=== PATIENT | female | born 1980 | race Caucasian/White ===

== ENCOUNTER 2020-12-23 13:53 | Outpatient (REF) | payer OTHER, SELFPAY ==
[2020-12-23 18:38] LABS: Leukocytes Stool Qualitative NEGATIVE (NEGATIVE)
[2020-12-24 04:19] LABS: CDiff Gene PCR NEGATIVE (Negative)
== END 2020-12-23 13:54 | disposition home or self-care (01) ==
LOC: HO.HMGCLNP 13:53
PROVIDERS: Visit Provider Nurse Practitioner Family
DX: R19.7 Diarrhea, unspecified (principal)
CPT/HCPCS: 87045; 87046; 87177; 87209; 87329; 87338; 87493; 89055

== ENCOUNTER 2021-01-29 14:46 | Outpatient (REF) | payer OTHER, SELFPAY ==
--- NOTE | ~2021-01-29 | XR_ITS ---
EXAMINATION: XR LUMBOSACRAL SPINE CLINICAL INFORMATION: Radiculopathy, lumbar region COMPARISON: None TECHNIQUE: AP and lateral views of the lumbar spine with an additional coned down lateral spot view of the lumbosacral junction. FINDINGS: 5 non-rib bearing lumbar type vertebral bodies are seen. The vertebral bodies and posterior elements are normal. The disc spaces are preserved and the vertebral alignment is normal. The paraspinal soft tissues are normal. Right upper quadrant cholecystectomy clips. XR/XR lumbar spine 2-3V IMPRESSION: Normal appearance of the lumbar spine.
[2021-01-29 16:40] LABS: Appearance Urine CLEAR; Color Urine DK YELLOW; Glucose Urine UA NEG (NEG); Leukocyte Esterase Urine NEG (NEG); Nitrite Urine NEG (NEG); PH 5.5 (5.0-8.0); Specific Gravity - Urine >= 1.030 (1.005-1.025); Urine Blood NEG (NEG); Urine Ketones NEG (NEG); Urine Protein TRACE MG/DL (NEG-TRACE)
[2021-01-29 16:48] LABS: Bacteria Urine TRACE /LPF; Mucus Urine 2+ /LPF; RBC Urine 0-2 /HPF (0); Squamous Epithelial Cell Urine 1+ /LPF
== END 2021-01-29 14:47 | disposition home or self-care (01) ==
LOC: HO.HMGCX 14:46
PROVIDERS: PCP Nurse Practitioner Family; Visit Provider Nurse Practitioner Family
DX: M54.16 Radiculopathy, lumbar region (principal); N39.0 Urinary tract infection, site not specified
CPT/HCPCS: 72100; 81001; 87086

== ENCOUNTER 2022-01-18 12:26 | Outpatient (REF) | payer OTHER, SELFPAY ==
--- NOTE | ~2022-01-18 | MM_ITS ---
EXAMINATION: MM SCREENING DIGITAL BREAST TOMOSYNTHESIS, BILATERAL CLINICAL INFORMATION: Screening. Asymptomatic. The lifetime risk of breast cancer based on the Tyrer-Cuzick Model is 7.9%. COMPARISON: Mammography: None. TECHNIQUE: Digital breast tomosynthesis is performed in both the craniocaudal and mediolateral oblique views along with computer-aided detection (CAD). Synthesized 2D images are generated from the tomosynthesis. FINDINGS: The breasts are heterogeneously dense, which may obscure small masses (ACR BI-RADS breast composition Category c). About the anterior inferior aspect of the right breast, there is an asymmetric density present for which spot compression view is recommended in mediolateral oblique projection. I cannot definitely tell what density may represent on craniocaudal view. No abnormal dominant mass or suspicious grouping of calcifications is seen within the left breast. MM/MM tomosynthesis screening BI IMPRESSION: Right breast density for further evaluation as described. ASSESSMENT: BI-RADS 0: Incomplete - Need Additional Imaging Evaluation RECOMMENDATION: 1. Additional views of the right breast 2. Targeted ultrasound if warranted after review of the additional views. 3. Radiology department staff will contact the patient for additional imaging.
== END 2022-01-18 12:27 | disposition home or self-care (01) ==
LOC: HO.MAMMO 12:26
PROVIDERS: PCP Nurse Practitioner Family; Visit Provider Nurse Practitioner Family
DX: Z12.31 Encounter for screening mammogram for malignant neoplasm of breast (principal)
CPT/HCPCS: 77063; 77067

== ENCOUNTER 2022-02-08 14:37 | Outpatient (REF) | payer OTHER, SELFPAY ==
--- NOTE | ~2022-02-08 | MM_ITS ---
EXAMINATION: MM DIAGNOSTIC DIGITAL BREAST TOMOSYNTHESIS, RIGHT CLINICAL INFORMATION: Recall from baseline mammography for question of asymmetric density lower right breast on MLO view. Cc score 8%. COMPARISON: Mammography: 01/18/2022, baseline. TECHNIQUE: Digital breast tomosynthesis is performed. 2D images are generated from the tomosynthesis. The following views are obtained: Spot MLO. FINDINGS: There are scattered areas of fibroglandular density (ACR BI-RADS breast composition Category b). Breast tissue composition borders on heterogeneously dense. The additional view shows no asymmetric density, mass, or architectural abnormality. Results are discussed with the patient at time of visit. MM/MM tomosynthesis added views R IMPRESSION: Additional view shows no asymmetric density, mass, architectural abnormality. ASSESSMENT: BI-RADS 1: Negative RECOMMENDATION: Routine annual mammography screening. This patient's information was entered into a reminder system with a target due date for their next mammogram.
== END 2022-02-08 14:38 | disposition home or self-care (01) ==
LOC: HO.MAMMO 14:37
PROVIDERS: PCP Nurse Practitioner Family; Visit Provider Nurse Practitioner Family
DX: R92.2 Inconclusive mammogram (principal)
CPT/HCPCS: 77061; 77065

== ENCOUNTER → 2022-04-29 15:06 | Outpatient (REF) | payer OTHER, SELFPAY ==
--- NOTE | 2022-04-29 15:08 | HM_ITS ---
Conclusion: 1. Patient was monitored for total period of 2 days and 23 hours 2. Baseline was normal sinus rhythm with average heart rate of 99 beats per minute 3. Frequent sinus tachycardia with 28% of time heart rate greater than 100 beats per minute 4. No significant pauses or bradycardia noted 5. Very rare ectopy noted 6. No patient reported symptoms MTDD
== END ==
LOC: HO.CARD 15:06
PROVIDERS: Visit Provider Nurse Practitioner Family
DX: R00.2 Palpitations (principal)
CPT/HCPCS: 93242

== ENCOUNTER 2022-11-10 14:31 | Outpatient (REF) | payer OTHER, SELFPAY ==
[2022-11-10 16:34] LABS: Appearance Urine Clear; Color Urine Yellow; Glucose Urine UA Negative (Negative); Leukocyte Esterase Urine Trace (Negative); Nitrite Urine Negative (Negative); PH 5.5 (5.0-9.0); Specific Gravity - Urine 1.015 (1.005-1.025); UMIC TRIGGER UACC YES; Urine Blood Trace (Negative); Urine Ketones Negative (Negative); Urine Protein Negative (Neg-Trace)
[2022-11-10 16:40] LABS: Bacteria Urine None Seen (None Seen); Hyaline Casts Urine 0-2 /LPF (0-2); RBC Urine 0-2 /HPF (0-2); Squamous Epithelial Cell Urine 0-2 /HPF (0-2); WBC Urine 0-5 /HPF (0-5)
== END 2022-11-10 14:32 | disposition home or self-care (01) ==
LOC: HO.HMGCLDS 14:31
PROVIDERS: PCP Nurse Practitioner Family; Visit Provider Nurse Practitioner Family
DX: N39.0 Urinary tract infection, site not specified (principal); A41.9 Sepsis, unspecified organism
CPT/HCPCS: 81001

== ENCOUNTER 2022-12-31 11:16 | Outpatient (AMB) | payer OTHER, SELFPAY ==
--- NOTE | 2022-12-31 12:39 | MHC.OFFWIV ---
Intake Vital Signs 12/31/22 12:53 Height 5 ft BP 130/72 Blood Pressure Location Lt brachial Position Sitting Pulse 76 Pulse Source Pulse Oximeter Temp 98.2 F Temp Source Oral Pulse Oximetry (%) 98 Oxygen Delivery Method Room Air Intake Visit Reasons: EST/kidney infection?[phone] Intake Note: pt is here for c/o possible kidney infection Patient Tobacco Use Status: Never used Tobacco Allergies acetaminophen [From PERCOCET] Allergy (Severe, Unverified 01/11/22 08:23) ITCHING infliximab [From REMICADE] Allergy (Severe, Unverified 01/11/22 08:23) DIFFICULTY BREATHING iron [IRON] Allergy (Severe, Unverified 01/11/22 08:23) ANAPHYLAXIS, anaphylactic shock iron dextran complex [IRON DEXTRAN COMPLEX] Allergy (Severe, Unverified 01/11/22 08:23) ANAPHYLAXIS oxycodone [From PERCOCET] Allergy (Severe, Unverified 01/11/22 08:23) ITCHING Do you need a note to return to daycare/school/sports/work: No HPI EST/kidney infection?[phone] HPI Details Patient is a 42-year-old female comes to the walk-in clinic complaining of right mid back pain, along with nausea, diarrhea, and fatigue. She states that she had similar symptoms with her last immune therapy treatment for her Crohn's, which resulted in a severe case of pyelonephritis that she was hospitalized at [facility]. No nephrolithiasis history, as she had a negative ultrasound. She states that the only different symptom was that she had developed a high-grade fever late in the course, and she so far is not febrile, no chills. She denies urinary frequency above baseline, dysuria, hematuria, inability to completely void, vomiting, weakness, dizziness, abdominal pain, or other significant associated symptoms. [facility] Medical History Crohn's disease Crohn's disease of colon with fistula Crohn's disease with fistula Lumbar back pain with radiculopathy affecting lower extremity Social History Housing: House Patient Tobacco Use Status: Never used Tobacco e-Cigarette/Vaping Use: Never Used Second Hand Smoke Exposure: No service: No Current occupational status: disabled Cognitive needs: No Hearing needs: No Vision needs: No Physical Exam Vital Signs: Last Vital Signs Temp 98.2 F 12/31/22 12:53 Pulse 76 12/31/22 12:53 BP 130/72 12/31/22 12:53 Pulse Ox 98 12/31/22 12:53 Oxygen Delivery Method Room Air 12/31/22 12:53 Const General: cooperative, healthy appearing, comfortable, no acute distress, alert, awake, Physically active and well groomed; No anxious, diaphoretic, ill appearing, intoxicated appearing, poor hygiene or tired appearing Nutritional Appearance: average body habitus Orientation/consciousness: patient oriented x3 Limitations: no limitations Resp Effort & Inspection: normal respiratory effort and no cough Cardio Rate: regular rate Rhythm: regular rhythm GI Inspection: No Abdominal wall edema Palpation (GI): Soft to palpation, not firm, nontender, no guarding, not rigid and No hepatosplenomegaly present General: Yes bladder normal to palpation and Yes CVA tenderness on the right; not on the left Bimanual exam- vagina & uterus: bladder normal to palpation Back/Spine/Pelvis Back: CVA tenderness Skin Other: Good color, warm and dry Neuro General: patient oriented x3 Psych Appearance: grossly normal Mental Status: mental status grossly normal Speech and movement: Normal speech and movement present Affect: normal affect Attitude: cooperative Thought process: Normal thought process present Insight: Good insight present (Psych) Judgement: Good judgement present (Psych) Results AMB Urinalysis, Automated UA Leukoctes 0 Nataliya/uL Last Edit by Dav Vázquez CMA on 12/31/22 13:00 UA Nitrite Negative Last Edit by Dav Vázquez CMA on 12/31/22 13:00 UA Urobilinogen 0.2 mg/dL Last Edit by Dav Vázquez CMA on 12/31/22 13:00 UA Protein 0 mg/dL Last Edit by Dav Vázquez CMA on 12/31/22 13:00 UA pH 6.0 Last Edit by Dav Vázquez CMA on 12/31/22 13:00 UA Blood 25 Gus/uL Last Edit by Dav Vázquez CMA on 12/31/22 13:00 UA Specific [place] 1.010 Last Edit by Dav Vázquez CMA on 12/31/22 13:00 UA Ketone Negative Last Edit by Dav áVzquez CMA on 12/31/22 13:00 UA Bilirubin 0 mg/dL Last Edit by Dav Vázquez CMA on 12/31/22 13:00 UA Glucose 0 mg/dL Last Edit by Dav Vázquez CMA on 12/31/22 13:00 Results Reviewed Results Reviewed: Laboratory Last Values Urine pH (Auto) 6.0 12/31/22 12:59 Specific [place] (Auto) 1.010 12/31/22 12:59 Urine Protein (Auto) 0 mg/dL 12/31/22 12:59 Glucose (UA)(Auto) 0 mg/dL 12/31/22 12:59 Urine Ketones (Auto) Negative 12/31/22 12:59 Urine Blood (Auto) 25 Gus/uL 12/31/22 12:59 Urine Nitrite (Auto) Negative 12/31/22 12:59 Urine Bilirubin (Auto) 0 mg/dL 12/31/22 12:59 Urine Urobilinogen (Auto) 0.2 mg/dL 12/31/22 12:59 Leukocyte Esterase (Auto) 0 Nataliya/uL 12/31/22 12:59 Assessment & Plan Assessment & Plan (1) Acute flank pain: Code(s): R10.9 - Unspecified abdominal pain Plan Patient with possible right pyelonephritis, as demonstrated by blood in her urinalysis, as well as symptoms of fatigue, nausea, and diarrhea along with right CVA tenderness. Apparently she has had this presentation in the past after immune therapy treatment for her Crohn's disease, and this resulted in severe pyelonephritis without cystitis or urethritis symptoms. Due to this, she requests antibiotics even though the dip was overly unremarkable. I wrote her for a course of ciprofloxacin, as it would be 1st line treatment for outpatient therapy for pyelo. Pending results of microscopy and susceptibility testing. She knows to go to the emergency department if symptoms worsen in the meantime, however she does have follow-up planned with a urologist in 2 months, and states that she will call them Maxime morning to see if they can see her sooner. Orders: Orders UA CC w/rflx Micro + Cult 12/31/22 R30.0 - Dysuria AMB Urinalysis Automated 12/31/22 Z13.9 - Encounter for screening, unspecified Medications: New ciprofloxacin HCl 500 mg PO BID 14 tabs 0RF Coding Level of Care Code Est Pt Level 4 (34828) Diagnoses Acute flank pain R10.9
[2022-12-31 12:53] VITALS: BP 130/72; PULSE 76; TEMP 36.8; O2SAT 98
== END 2022-12-31 13:52 | disposition home or self-care (01) ==
PROVIDERS: PCP Nurse Practitioner Family; Visit Provider Physician Assistant Medical
DX: Z13.9 Encounter for screening, unspecified (principal)
CPT/HCPCS: 81003; 99051; 99214

== ENCOUNTER 2022-12-31 13:56 | Outpatient (REF) | payer OTHER, SELFPAY ==
[2022-12-31 16:13] LABS: Appearance Urine Clear; Color Urine Yellow; Glucose Urine UA Negative (Negative); Leukocyte Esterase Urine Negative (Negative); Nitrite Urine Negative (Negative); PH 5.5 (5.0-9.0); Specific Gravity - Urine <= 1.005 (1.005-1.025); UMIC TRIGGER UACC YES; Urine Blood Trace (Negative); Urine Ketones Negative (Negative); Urine Protein Negative (Neg-Trace)
[2022-12-31 16:15] LABS: Bacteria Urine None Seen (None Seen); Hyaline Casts Urine 0-2 /LPF (0-2); RBC Urine 0-2 /HPF (0-2); Squamous Epithelial Cell Urine 0-2 /HPF (0-2); WBC Urine 0-5 /HPF (0-5)
== END 2022-12-31 13:57 | disposition home or self-care (01) ==
LOC: HO.LAB 13:56
PROVIDERS: Visit Provider Physician Assistant Medical
DX: R60.0 Localized edema (principal)
CPT/HCPCS: 81001

== ENCOUNTER 2023-01-12 11:07 | Outpatient (AMB) | payer OTHER, SELFPAY ==
--- NOTE | 2023-01-12 11:15 | MHC.PC.OV ---
Vital Signs 01/12/23 11:16 Height 5 ft Weight 129 lb 6 oz BMI 25.3 BP 100/68 Blood Pressure Location Rt brachial Position Sitting Pulse 67 Pulse Source Pulse Oximeter Pulse Oximetry (%) 100 Oxygen Delivery Method Room Air Intake Visit Reasons: Annual PE Allergies acetaminophen [From PERCOCET] Allergy (Severe, Unverified 01/12/23 11:17) ITCHING infliximab [From REMICADE] Allergy (Severe, Unverified 01/12/23 11:17) DIFFICULTY BREATHING iron [IRON] Allergy (Severe, Unverified 01/12/23 11:17) ANAPHYLAXIS, anaphylactic shock iron dextran complex [IRON DEXTRAN COMPLEX] Allergy (Severe, Unverified 01/12/23 11:17) ANAPHYLAXIS oxycodone [From PERCOCET] Allergy (Severe, Unverified 01/12/23 11:17) ITCHING Medication List - Last Reconciled 01/12/23 by CIARA Lewis-CHARBEL cyclobenzaprine 10 mg PO DAILY PRN lorazepam 1 mg PO DAILY propranolol ER 60 mg PO DAILY risankizumab-rzaa (Skyrizi) 600 mg IV Q4W tramadol 50 mg PO Q6H PRN Tobacco use date assessed: 01/12/23 Dental Screening Dental Screen Date: 01/12/23 Did you have a dental visit in the last 12 months?: Yes Did you have a dental problem in the last 6 months where you did not have access to dental care?: No Was dental information given to patient?: Patient has dentist HPI Annual PE HPI Details Pt is here for a PE. Will order labs. Pt does not have a geometry tutor, will refer. Pt sees GI due to significant Crohn's with fistula. [facility] Medical History Crohn's disease Crohn's disease of colon with fistula Crohn's disease with fistula Lumbar back pain with radiculopathy affecting lower extremity Social History Housing: House Patient Tobacco Use Status: Never used Tobacco e-Cigarette/Vaping Use: Never Used Second Hand Smoke Exposure: No service: No Current occupational status: disabled Cognitive needs: No Hearing needs: No Vision needs: No Questionnaire Thrive Questionnaire Date Thrive assessed: 01/11/22 LINDA-7 AMB Questionnaire LINDA-7 Date LINDA - 7 assessed: 01/11/22 Source: Developed by Drs. Demetri Ewing, Brenda Urena, Brendan Whitfield and colleagues, with an educational pk from [employer]. Review of Systems Const Denies chills and Denies fever(s) Eyes Denies blurry vision ENT Denies vertigo, Denies dizziness and Denies sore throat Card Denies chest pain at rest, Denies chest pain with activity, Denies diaphoresis, Denies dyspnea and Denies dyspnea on exertion Resp Denies cough, Denies dyspnea, Denies dyspnea on exertion and Denies wheezing GI Denies abdominal pain, Denies melena, Denies hematochezia, Denies constipation, Denies diarrhea and Denies loose stools Denies hematuria Musc Denies numbness and Denies tingling Skin/Breast Denies lesions Neuro Denies vertigo, Denies dizziness, Denies numbness and Denies tingling Psych Denies anxiety, Denies depression, Denies homicidal ideation, Denies suicidal ideation and Denies other (substance abuse) Aller/Immun Denies wheezing Physical exam (Primary Care) Vital Signs: Last Vital Signs Pulse 67 01/12/23 11:16 BP 100/68 01/12/23 11:16 Pulse Ox 100 01/12/23 11:16 Oxygen Delivery Method Room Air 01/12/23 11:16 BMI result Body Mass Index 25.3 Tobacco/Smoking Status: Tobacco use Status Tobacco use date assessed 01/12/23 01/12/23 11:21 Patient Tobacco Use Status Never used Tobacco 01/12/23 11:21 e-Cigarette/Vaping Use Never Used 01/12/23 11:21 Thrive Assessment: Date of Thrive Assessment Date Thrive assessed 01/11/22 01/12/23 11:21 Const General: cooperative Nutritional Appearance: well nourished Orientation/consciousness: patient oriented x3 HENMT Head: Yes normal to inspection, Yes normocephalic and Yes atraumatic Ears: TM's normal bilaterally Eyes General: appearance normal, both eyes and all related structures Alignment and Position: alignment normal and position normal Neck Neck: Yes normal visual inspection and Yes no lymphadenopathy Thyroid: Thyroid normal Resp Effort & Inspection: normal respiratory effort Auscultation: clear to auscultation bilaterally Cardio Rate: regular rate Rhythm: regular rhythm Heart sounds: S1 normal heart sound present, S2 normal heart sound present and no murmurs GI Palpation (GI): Soft to palpation and Tenderness to palpation present (GI) (generalized tenderness with palpation ) Auscultation: normal bowel sounds Skin Rashes: no rashes Neuro General: patient oriented x3, moves all extremities, no focal motor deficits and deep tendon reflexes 2+ bilaterally Romberg Test: Negative Psych Appearance: grossly normal Mental Status: mental status grossly normal Speech and movement: Normal speech and movement present Affect: normal affect Attitude: cooperative Thought process: Normal thought process present Thought content: Normal thought content present Insight: Good insight present (Psych) Judgement: Good judgement present (Psych) Assessment and Plan Assessment & Plan (1) Physical exam: Code(s): Z00.00 - Encounter for general adult medical examination without abnormal findings Plan: Labs ordered (2) Screening for cervical cancer: Code(s): Z12.4 - Encounter for screening for malignant neoplasm of cervix Plan The patient agreed to the use of a diploma medical assistant for this encounter. Scribed for SULMA Moya by Mayelin Vasquez diploma medical assistant, on 01/12/2023 at 11:35 EST. Orders: Orders Comprehensive [place]. Panel Fast Today Z00.00 - Encounter for general adult medical examination without abnormal findings Lipid Panel Today Z00.00 - Encounter for general adult medical examination without abnormal findings TSH reflex Free T4 Today Z00.00 - Encounter for general adult medical examination without abnormal findings Complete Blood Count Auto Diff Today Z00.00 - Encounter for general adult medical examination without abnormal findings UA CC w/rflx Micro + Cult Today Z00.00 - Encounter for general adult medical examination without abnormal findings Referrals DRYWALL STRIPPER Referral Z12.4 - Encounter for screening for malignant neoplasm of cervix Medications: Changed From lorazepam 1 mg PO DAILY 30 tabs 1RF To lorazepam 1 mg (2 x 0.5 mg) PO DAILY 60 tabs 1RF Coding Level of Care Code Est Pt Prev Care 40-64y(49137) Diagnoses Physical exam Z00.00 Screening for cervical cancer Z12.4
[2023-01-12 11:16] VITALS: BP 100/68; PULSE 67; O2SAT 100; BMI 25.3
== END 2023-01-12 11:51 | disposition home or self-care (01) ==
PROVIDERS: Visit Provider Nurse Practitioner Family
DX: Z00.00 Encounter for general adult medical examination without abnormal findings (principal); Z12.4 Encounter for screening for malignant neoplasm of cervix
CPT/HCPCS: 99396

== ENCOUNTER → 2023-08-31 15:53 | Outpatient (AMB) | payer OTHER, SELFPAY ==
[2023-08-31 15:51] VITALS: BP 130/78; PULSE 98; TEMP 36.5; O2SAT 100; BMI 26.1
--- NOTE | 2023-08-31 15:51 | MHC.OFFWIV ---
Intake Vital Signs 08/31/23 15:51 Height 5 ft Weight 133 lb 8 oz BMI 26.1 BP 130/78 Blood Pressure Location Lt brachial Position Sitting Pulse 98 Pulse Source Pulse Oximeter Temp 97.7 F Temp Source Oral Pulse Oximetry (%) 100 Oxygen Delivery Method Room Air Intake Visit Reasons: EP Lower back discomfort Intake Note: Pt presents to the office today for c/o lower back discomfort that has been ongoing for years but recently ibuprofen and motrin has not helped. She states it used to be worse at night but now it is bothering her more during the day as well. Patient Tobacco Use Status: Never used Tobacco Allergies acetaminophen [From PERCOCET] Allergy (Severe, Unverified 08/31/23 15:52) ITCHING infliximab [From REMICADE] Allergy (Severe, Unverified 08/31/23 15:52) DIFFICULTY BREATHING iron [IRON] Allergy (Severe, Unverified 08/31/23 15:52) ANAPHYLAXIS, anaphylactic shock iron dextran complex [IRON DEXTRAN COMPLEX] Allergy (Severe, Unverified 08/31/23 15:52) ANAPHYLAXIS oxycodone [From PERCOCET] Allergy (Severe, Unverified 08/31/23 15:52) ITCHING HPI HPI Comments History of Present Illness Details 43 y/o female patient who presents to the walk in clinic with c/o lower back pain for years. Pt reports that pain has been getting worse in the past few days and Acetaminophen and Ibuprofen do not work. She takes Tramadol routinely for Crohn's disease pain. Pt asking for MRI of her Back. She has not tried PT and she is willing to give therapy a try. [facility] Medical History Crohn's disease with fistula Lumbar back pain with radiculopathy affecting lower extremity Crohn's disease of colon with fistula Crohn's disease Social History Housing: House Patient Tobacco Use Status: Never used Tobacco e-Cigarette/Vaping Use: Never Used Second Hand Smoke Exposure: No service: No Current occupational status: disabled Cognitive needs: No Hearing needs: No Vision needs: No Review of Systems Const All systems reviewed & are unremarkable except as noted in HPI and below Physical Exam Vital Signs: Last Vital Signs Temp 97.7 F 08/31/23 15:51 Pulse 98 08/31/23 15:51 BP 130/78 08/31/23 15:51 Pulse Ox 100 08/31/23 15:51 Oxygen Delivery Method Room Air 08/31/23 15:51 BMI result Body Mass Index 26.1 Const General: no acute distress; No comfortable Orientation/consciousness: patient oriented x3 General: Yes no CVA tenderness Back/Spine/Pelvis Back: no CVA tenderness, No mass, No erythema and back tenderness Thoracic/Lumbar Spine: thoracic and lumbar spine normal to inspection, paraspinal muscle tenderness, thoraco-lumbar ROM limited (Due to pain) and lumbar spinal tenderness at L4 and at L5 Neuro General: patient oriented x3 and gait normal Psych Speech and movement: Normal speech and movement present Office Meds ketorolac 60 mg/2 mL intramuscular solution Performing Provider: Didi Giron NP Performing Location: [facility] Administered by: Sumit Rust RN on 08/31/23 16:22 Dose Route Admin Location Dispensed Lot Number Expiration Date [facility] [employer] 60 mg IM right buttocks 2 mL [id number] 04/21/24 1448-8667-04 [employer] Comments: patient consented for Ketorolac injection. Tolerated well. Results AMB Urinalysis, Automated UA Leukoctes 0 Nataliya/uL Last Edit by Itzel Correia CMA on 08/31/23 16:03 UA Nitrite Negative Last Edit by Itzel Correia CMA on 08/31/23 16:03 UA Urobilinogen 0.2 mg/dL Last Edit by Itzel Correia CMA on 08/31/23 16:03 UA Protein 0 mg/dL Last Edit by Itzel Correia CMA on 08/31/23 16:03 UA pH 6.0 Last Edit by Itzel Correia CMA on 08/31/23 16:03 UA Blood 80 Gus/uL Last Edit by Itzel Correia CMA on 08/31/23 16:03 UA Specific [place] 1.010 Last Edit by Itzel Correia CMA on 08/31/23 16:03 UA Ketone Negative Last Edit by Itzel Correia CMA on 08/31/23 16:03 UA Bilirubin 0 mg/dL Last Edit by Itzel Correia CMA on 08/31/23 16:03 UA Glucose 0 mg/dL Last Edit by Itzel Correia CMA on 08/31/23 16:03 Results Reviewed Results Reviewed: Laboratory Last Values Urine pH (Auto) 6.0 08/31/23 16:03 Specific [place] (Auto) 1.010 08/31/23 16:03 Urine Protein (Auto) 0 mg/dL 08/31/23 16:03 Glucose (UA)(Auto) 0 mg/dL 08/31/23 16:03 Urine Ketones (Auto) Negative 08/31/23 16:03 Urine Blood (Auto) 80 Gus/uL 08/31/23 16:03 Urine Nitrite (Auto) Negative 08/31/23 16:03 Urine Bilirubin (Auto) 0 mg/dL 08/31/23 16:03 Urine Urobilinogen (Auto) 0.2 mg/dL 08/31/23 16:03 Leukocyte Esterase (Auto) 0 Nataliya/uL 08/31/23 16:03 Assessment & Plan Assessment & Plan (1) Lumbar back pain with radiculopathy affecting lower extremity: Code(s): M54.16 - Radiculopathy, lumbar region Plan: - Gave Ketorolac 60 mg in Office - Pt tolerated well - Referral for PT placed Orders: Orders PT Evaluation and Treatment Today M54.16 - Radiculopathy, lumbar region AMB Urinalysis Automated Today Z13.9 - Encounter for screening, unspecified AMB Ketorolac Injection Today M54.16 - Radiculopathy, lumbar region Coding Level of Care Code Est Pt Level 4 (12699) Diagnoses Lumbar back pain with radiculopathy affecting lower extremity M54.16 Time Spent (min) 15
== END ==
PROVIDERS: PCP Nurse Practitioner Family; Visit Provider Nurse Practitioner Family
DX: M54.16 Radiculopathy, lumbar region (principal)
CPT/HCPCS: 81003; 96372; 99214; J1885

== ENCOUNTER 2024-07-11 11:22 | Outpatient (AMB) | payer OTHER, SELFPAY ==
--- NOTE | 2024-07-11 11:35 | A.OFFPC_ITS ---
Vital Signs 07/11/24 11:36 Height 5 ft Weight 133 lb BMI 26.0 BP 130/76 Blood Pressure Location Lt brachial Position Sitting Pulse 97 Pulse Source Pulse Oximeter Temp 97.8 F Temp Source Temporal Artery Scan Pulse Oximetry (%) 98 Intake Visit Reasons: Med review-anxiety Allergies acetaminophen [From PERCOCET] Allergy (Severe, Verified 07/11/24 11:36) ITCHING infliximab [From REMICADE] Allergy (Severe, Verified 07/11/24 11:36) DIFFICULTY BREATHING iron [IRON] Allergy (Severe, Verified 07/11/24 11:36) ANAPHYLAXIS, anaphylactic shock iron dextran complex [IRON DEXTRAN COMPLEX] Allergy (Severe, Verified 07/11/24 11:36) ANAPHYLAXIS oxycodone [From PERCOCET] Allergy (Severe, Verified 07/11/24 11:36) ITCHING Tobacco use date assessed: 07/11/24 Dental Screening Dental Screen Date: 07/11/24 Did you have a dental visit in the last 12 months?: Yes Did you have a dental problem in the last 6 months where you did not have access to dental care?: No Was dental information given to patient?: Patient has dentist HPI Med review-anxiety HPI Details Chief Complaint The patient reports leg discomfort and nighttime movement. History of Present Illness The patient is a 44-year-old female presenting with concerns of leg discomfort and nighttime kicking, suggestive of restless leg syndrome. She reports her symptoms commenced approximately two years ago and have progressively worsened. The discomfort is notably present in her bilateral thighs and is significant enough to require getting up and walking to alleviate it. Her has observed slight kicking movements at night. The patient has a known history of low iron and ferritin levels, for which she receives intravenous iron infusions. There is no reported redness or swelling in the thighs, and no pain is noted upon palpation of the area. The patient denies any other associated symptoms. anxiety: fairly well controlled currently, will cont to monitor. Social History Health Maintenance Review of Systems - Musculoskeletal System: Reports signif icant discomfort in bilateral thighs Physical Exam General: Cooperative, healthy appearing, comfortable, no acute distress and well developed Orientation: Patient oriented x3 Limitations: No limitations Head: Normal to inspection Ears: Hearing grossly normal bilaterally Nose: Normal external nose present Face and sinus: Normal facial exam Eyes: Appearance normal, both eyes and all related structures Neck: Normal visual inspection and Yes full ROM Respiratory: Normal respiratory effort and able to speak in complete sentences. Clear to auscultation bilaterally Cardiovascular: Regular rate and rhythm. Faint systolic murmur noted. Normal S1 and S2 GI: Normal to inspection. Soft to palpation and nontender Skin: No rashes or lesions noted Neuro: Patient oriented x3 Extremities: No redness or swelling to thighs. No pain with palpation of thighs. Normal to inspection Results Plan - Check iron levels, including ferritin, to assess current status. - Evaluate symptoms further for restless leg syndrome. - Consider management and intervention o ptions based on test outcomes. Discussion Notes I discussed with the patient the possibility of restless leg syndrome based on her reported symptoms and nighttime leg movements. We addressed her iron deficiency history, including her current need for intravenous iron infusions. I explained the plan to obtain her current iron and ferritin levels to further evaluate her condition. Potential management strategies for restless leg syndrome were discussed contingent upon diagnostic outcomes. Patient Instructions - Follow up for blood work to check iron and ferritin levels. - Monitor symptoms and keep a diary of n ighttime leg movements and discomfort. - Return to clinic with any worsening sy mptoms or new concerns. [facility] Medical History Crohn's disease with fistula Lumbar back pain with radiculopathy affecting lower extremity Crohn's disease of colon with fistula Crohn's disease Social History Housing: House Patient Tobacco Use Status: Never used Tobacco e-Cigarette/Vaping Use: Never Used Second Hand Smoke Exposure: No service: No Current occupational status: disabled Cognitive needs: No Hearing needs: No Vision needs: No Questionnaire PHQ-9 Over the last 2 weeks, how often have you been bothered by any of the following problems? 1. Little interest or pleasure in doing things: several days 2. Feeling down, depressed, or hopeless: several days 3. Trouble falling or staying asleep, or sleeping too much: nearly every day 4. Feeling tired or having little energy: nearly every day 5. Poor appetite or overeating: several days 6. Feeling bad about yourself - or that you are a failure or have let yourself or your family down: not at all 7. Trouble concentrating on things, such as reading the newspaper or watching television: not at all 8. Moving or speaking so slowly that other people could have noticed. Or the opposite - being so fidgety or restless that you have been moving around a lot more than usual: not at all 9. Thoughts that you would be better off or of hurting yourself in some way: not at all Total score: 9 Depression Screening Interpretation: Positive Depression Screening Done: Yes 80250 - PHQ-9 Billing: Yes Source: Developed by Drs. Demetri Ewing, Brenda Urena, Brendan Whitfield and colleagues, with an educational pk from [employer] Thrive Questionnaire Date Thrive assessed: 07/11/24 I am a: Patient What is your living situation today?: I have a steady place to live Within the past 12 months, did the food you bought not last and you didn't have the money to get more?: Never true Within the past 12 months, did you worry whether your food would run out before you got money to buy more?: Never true Do you have trouble paying for medicines?: No Do you have trouble getting transportation to medical appointments?: No Do you have trouble paying your heating and electricity bill?: No Do you have trouble taking care of your child, family member or friend?: No Do you have trouble with day-to-day activities such as bathing, preparing meals, shopping, managing finances, etc.?: No Are you currently unemployed and looking for a job?: Yes Are you interested in more education?: No Please select the resources that you would like help with: None Currently or been in a relationship where the following occur: No concerns reported THRIVE Score: 0 AUDIT C Alcohol Use Questionnaire (AUDIT-C) 1. How often do you have a drink containing alcohol?: Never 3. How often do you have six or more drinks on one occasion?: Never Total Score: 0 Score Reviewed/Action Taken: Yes LINDA-7 AMB Questionnaire LINDA-7 Date LINDA - 7 assessed: 07/11/24 Feeling nervous, anxious, or on edge: 1 = Several days Not being able to stop or control worryin = Several days Worrying too much about different things: 1 = Several days Trouble relaxin = Several days Being so restless that it is hard to sit still: 0 = Not at all Becoming easily annoyed or irritable: 0 = Not at all Feeling afraid as if something awful might happen: 0 = Not at all Total LINDA-7 score (0-4 normal; 5-9 mild; 10-14 moderate; 15-21 severe): 4 Source: Developed by Drs. Demetri Ewing, Brenda Urena, Berndan Whitfield and colleagues, with an educational pk from [employer] LINDA-7 Assessment Billing LINDA-7 Assessment Tool: LINDA-7 Assessment 93447 Physical exam (Primary Care) Vital Signs: Last Vital Signs Temp 97.8 F 07/11/24 11:36 Pulse 97 07/11/24 11:36 BP 130/76 07/11/24 11:36 Pulse Ox 98 07/11/24 11:36 BMI result Body Mass Index 26.0 Tobacco/Smoking Status: Tobacco use Status Tobacco use date assessed 07/11/24 07/11/24 11:40 Patient Tobacco Use Status Never used Tobacco 07/11/24 11:40 e-Cigarette/Vaping Use Never Used 07/11/24 11:40 PHQ-9: PHQ-9 Score PHQ-9: Total score 9 07/11/24 11:40 Depression Screening Interpretation: Positive Thrive Assessment: Date of Thrive Assessment Date Thrive assessed 07/11/24 07/11/24 11:40 Currently or been in a relationship where the following occur: No concerns reported Coding Level of Care Code Est Pt Level 3 (72302) Diagnoses Anxiety F41.9 Restless leg G25.81 Leg pain, bilateral M79.604; M79.605 Additional Codes LINDA-7 Assessment Billing - LINDA-7 Assessment Tool: LINDA-7 Assessment 80132 ([id number]) PHQ-9 - 68682 - PHQ-9 Billing: Yes ([id number]) Assessment & Plan Assessment & Plan (1) Anxiety: Code(s): F41.9 - Anxiety disorder, unspecified Category: Medical (2) Restless leg: Code(s): G25.81 - Restless legs syndrome Category: Medical Plan: . (3) Leg pain, bilateral: Code(s): M79.604 - Pain in right leg; M79.605 - Pain in left leg Category: Medical (4) Leg pain, bilateral: Code(s): M79.604 - Pain in right leg; M79.605 - Pain in left leg Category: Medical Plan . Orders: Orders Complete Blood Count Auto Diff Today F41.9 - Anxiety disorder, unspecified Comprehensive [employer]. Panel Fast Today F41.9 - Anxiety disorder, unspecified IRON PROFILE Today G25.81 - Restless legs syndrome Creatine Kinase Total Today M79.604 - Pain in right leg, M79.605 - Pain in left leg MM screening mammo BI Today Z12.31 - Encounter for screening mammogram for malignant neoplasm of breast TSH reflex Free T4 Today F41.9 - Anxiety disorder, unspecified UA CC w/rflx Micro + Cult Today F41.9 - Anxiety disorder, unspecified Lipid Panel Today F41.9 - Anxiety disorder, unspecified Magnesium Today G25.81 - Restless legs syndrome Ferritin Today G25.81 - Restless legs syndrome Tick-borne Disease Molecular Today G25.81 - Restless legs syndrome Lyme IgG/IgM w/reflex to WB Today G25.81 - Restless legs syndrome Vitamin B12 and Folate Today G25.81 - Restless legs syndrome, M79.604 - Pain in right leg, M79.605 - Pain in left leg Vitamin B6 Today G25.81 - Restless legs syndrome, M79.604 - Pain in right leg, M79.605 - Pain in left leg
[2024-07-11 11:36] VITALS: BP 130/76; PULSE 97; TEMP 36.6; O2SAT 98; BMI 26.0
== END 2024-07-11 12:37 | disposition home or self-care (01) ==
PROVIDERS: PCP Nurse Practitioner Family; Visit Provider Nurse Practitioner Family
DX: F41.9 Anxiety disorder, unspecified (principal); G25.81 Restless legs syndrome; M79.604 Pain in right leg; M79.605 Pain in left leg

== ENCOUNTER → 2024-07-11 11:22 | Outpatient (BNVA) | payer OTHER, SELFPAY | PROVIDERS: PCP Nurse Practitioner Family; Visit Provider Nurse Practitioner Family | DX: F41.9 Anxiety disorder, unspecified (principal); G25.81 Restless legs syndrome; M79.604 Pain in right leg; M79.605 Pain in left leg | CPT/HCPCS: 96127 ==

== ENCOUNTER 2024-07-12 15:06 | Outpatient (REF) | payer OTHER, SELFPAY ==
[2024-07-12 16:41] LABS: MANUAL DIFF FLAG NO
[2024-07-12 16:54] LABS: Basophils Absolute Auto 0.1 X10*3/uL (0.0-0.2); Basophils Percent Auto 0.4 % (0-2); Eosinophils Absolute Auto 0.1 X10*3/uL (0.0-0.4); Hematocrit 36.1 % (37.0-47.0); Hemoglobin 11.8 g/dl (12.0-16.0); Imm Gran Abs Auto 0.04 X10*3/uL (0.00-0.03); Imm Gran Pct Auto 0.3 % (0.0-0.4); Lymphocytes Absolute Auto 2.6 X10*3/uL (1.2-4.9); Mean Corpuscular HGB Conc 32.7 g/dl (31.0-35.0); Mean Corpuscular Hemoglobin 26.6 pg (27.0-33.0); Mean Corpuscular Volume 81.3 fL (80.0-98.0); Mean Platelet Volume 10.6 fL (9.4-12.3); Monocytes Absolute Auto 0.6 X10*3/uL (0.1-1.2); Monocytes Percent Auto 4.6 % (2-11); Neutrophils Absolute Auto 9.1 x10*3/uL (2.0-8.3); Neutrophils Percent Auto 72.7 % (45-73); Platelet Count 405 X10*3/uL (160-400); Red Blood Count 4.44 X10*6/uL (4.20-5.50); Red Cell Distribution Width 13.5 % (11.0-16.0); White Blood Count 12.5 X10*3/uL (4.8-10.8)
[2024-07-12 17:00] LABS: Appearance Urine Clear; Color Urine Dark Yellow; Glucose Urine UA Negative (Negative); Leukocyte Esterase Urine Negative (Negative); Nitrite Urine Negative (Negative); PH 5.5 (5.0-9.0); UMIC TRIGGER UACC YES; Urine Blood Small (1+) (Negative); Urine Ketones Trace mg/dL (Negative); Urine Protein Trace mg/dL (Neg-Trace)
[2024-07-12 17:16] LABS: Bacteria Urine None Seen (None Seen); Hyaline Casts Urine 0-2 /LPF (0-2); RBC Urine 0-2 /HPF (0-2); WBC Urine 0-5 /HPF (0-5)
[2024-07-12 17:48] LABS: Folate 17.1 ng/mL (> or = 4.0); Vitamin B12 218 pg/mL (200-900)
[2024-07-12 17:58] LABS: Alanine Aminotransferase 20 U/L (0-31); Albumin Level 4.1 g/dL (3.5-5.0); Alkaline Phosphatase 82 U/L (39-117); Anion Gap 12 (12-20); Aspartate Amino Transferase 21 U/L (5-31); Bilirubin Total 0.9 mg/dL (0.0-1.0); Blood Urea Nitrogen 6 mg/dL (9-16); Calcium 9.6 mg/dL (8.4-10.2); Carbon Dioxide 22 mmol/L (22-29); Chloride 107 mmol/L (96-108); Cholesterol 180 mg/dL (<200); Estimated Glomerular Filt Rate > 60; Glucose Fasting 67 mg/dL (60-99); HDL Cholesterol 44 mg/dL (>40); Iron 66 mcg/dL (30-160); LDL Cholesterol Calculated 94 mg/dL (<100); Magnesium 1.6 mg/dL (1.6-2.6); Percent Iron Saturation 15 % (15-50); Potassium 3.2 mmol/L (3.3-5.1); Sodium 138 mmol/L (135-145); Total Iron Binding Capacity 443 mcg/dL (228-428); Total Protein 8.3 g/dL (6.5-8.0); Triglycerides 213 mg/dL (<150); Unsaturated Iron Binding 377 ug/dL
[2024-07-12 18:03] LABS: Ferritin 10 ng/mL (10-250); TSH reflex Free T4 1.68 uIU/mL (0.32-4.0)
[2024-07-13 17:27] LABS: A. Phagocytphilium DNA,RT-PCR NOT DETECTED (NOT DETECTED); Babesia Microti DNA, RT-PCR NOT DETECTED (NOT DETECTED); Borrelia Miyamotoi,DNA RT-PCR NOT DETECTED (NOT DETECTED); E.Chaffeensis DNA RT-PCR NOT DETECTED (NOT DETECTED); Lyme(Borrelia ssp)DNA RT-PCR NOT DETECTED (NOT DETECTED)
[2024-07-15 18:58] LABS: Lyme Abs Screen <0.90 index
[2024-07-18 13:54] LABS: Vitamin B6 4.4 ng/mL (2.1-21.7)
== END 2024-07-12 15:07 | disposition home or self-care (01) ==
LOC: HO.HMGCLDS 15:06
PROVIDERS: PCP Nurse Practitioner Family; Visit Provider Nurse Practitioner Family
DX: M79.604 Pain in right leg (principal); M79.605 Pain in left leg; G25.81 Restless legs syndrome; F41.9 Anxiety disorder, unspecified; Z13.6 Encounter for screening for cardiovascular disorders
CPT/HCPCS: 36415; 80053; 80061; 81001; 81003; 82550; 82607; 82728; 82746; 83540; 83735; 84207; 84443; 85025; 86617; 86618; 87468; 87469; 87478; 87484; 87798

== ENCOUNTER → 2024-09-06 12:45 | Outpatient (BNV) | payer OTHER, SELFPAY | PROVIDERS: PCP Nurse Practitioner Family; Visit Provider Internal Medicine | DX: Z12.31 Encounter for screening mammogram for malignant neoplasm of breast (principal) | CPT/HCPCS: 77063; 77067 ==

== ENCOUNTER 2024-09-06 12:51 | Outpatient (REF) | payer OTHER, SELFPAY | END 2024-09-06 12:52 | disposition home or self-care (01) | LOC: HO.MAMMO 12:51 | PROVIDERS: PCP Nurse Practitioner Family; Visit Provider Nurse Practitioner Family | DX: Z12.31 Encounter for screening mammogram for malignant neoplasm of breast (principal) | CPT/HCPCS: 77063; 77067 ==

== ENCOUNTER 2024-12-30 12:59 | Outpatient (AMB) | payer OTHER, SELFPAY ==
[2024-12-30 13:05] VITALS: BP 118/84; PULSE 101; RESP 16; O2SAT 100; BMI 25.4
--- NOTE | 2024-12-30 13:05 | A.OFFPC_ITS ---
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 Accompanied by: Self / Same As Patient Allergies acetaminophen (From PERCOCET) Allergy (Severe, Verified 12/30/24 13:28) ITCHING infliximab (From REMICADE) Allergy (Severe, Verified 12/30/24 13:28) DIFFICULTY BREATHING iron (IRON) Allergy (Severe, Verified 12/30/24 13:28) ANAPHYLAXIS, anaphylactic shock iron dextran complex (IRON DEXTRAN COMPLEX) Allergy (Severe, Verified 12/30/24 13:28) ANAPHYLAXIS oxycodone (From PERCOCET) Allergy (Severe, Verified 12/30/24 13:28) ITCHING Medication List - Last Reconciled 12/30/24 by Murali Caballero, RN [facility] cyanocobalamin (vitamin B-12) mcg IM cyclobenzaprine 10 mg PO DAILY PRN ergocalciferol (vitamin D2) PO lorazepam 1 mg (2 x 0.5 mg) PO DAILY omeprazole mg PO ondansetron HCl mg PO propranolol ER 60 mg PO DAILY risankizumab-rzaa (Skyrizi) mg subcut Tobacco use date assessed: 07/11/24 Dental Screening Dental Screen Date: 12/30/24 Did you have a dental visit in the last 12 months?: No Did you have a dental problem in the last 6 months where you did not have access to dental care?: No Was dental information given to patient?: Patient has dentist HPI PE HPI Details History of Present Illness The patient is a 44-year-old female presenting for a physical exam. She has a history of Crohn's disease, managed with Skyrizi, and her symptoms are generally well-controlled. She experiences intermittent abdominal discomfort and diarrhea and follows up regularly with a contact center manager. The patient reports palpitations that wake her from sleep, with a previous Holter monitor in 2021 showing intermittent tachycardia. She experiences these episodes weekly and will track them with a five-day Holter monitor, documenting any occurrences (last holter pt had no symptoms). pt is already on a BB. Health Maintenance - Mammogram is up to date -colon screen up to date, sees a GI on a regular basis Social History Review of Systems - Gastrointestinal: Reports intermittent abdominal discomfort and diarrhea - Cardiovascular: Reports palpitations t hat wake her from sleep -denies any sob, urinary issues, fevers, chills, SI or HI Physical Exam General: Cooperative, healthy appearing, comfortable, no acute distress and well developed Orientation: Patient oriented x3 Limitations: No limitations Head: Normal to inspection Ears: Hearing grossly normal bilaterally Nose: Normal external nose present Face and sinus: Normal facial exam Eyes: Appearance normal, both eyes and all related structures Neck: Normal visual inspection and Yes full ROM Respiratory: Normal respiratory effort and able to speak in complete sentences. Clear to auscultation bilaterally Cardiovascular: Regular rate and rhythm. Normal S1 and S2 GI: Normal to inspection. Soft to palpation and nontender Skin: No rashes or lesions noted Neuro: Patient oriented x3 Extremities: Normal to inspection Results Plan The patient will undergo a five-day Holter monitor test to track episodes of palpitations, documenting the exact time and date of any occurrences. An EKG will be performed today to further evaluate her cardiac status. Discussion Notes I discussed with the patient the plan to use a five-day Holter monitor to track her palpitations and the importance of documenting any episodes. We also agreed to perform an EKG today to assess her cardiac function. Patient Instructions - Wear the Holter monitor for five days and document any episodes of palpitations with the exact time and date. - Undergo an EKG today as planned. -pt knows to contact me with any worseni ng symptoms, or go to the ER. Most likely anxiety related. Pt not interested in any SNRI or SSRIs. [facility] Medical History (Updated 12/30/24 @ 13:41 by SULMA Lewis) Crohn's disease with fistula Lumbar back pain with radiculopathy affecting lower extremity Crohn's disease of colon with fistula Crohn's disease Social History Housing: House Patient Tobacco Use Status: Never used Tobacco e-Cigarette/Vaping Use: Never Used Second Hand Smoke Exposure: No service: No Current occupational status: disabled Cognitive needs: No Hearing needs: No Vision needs: No Questionnaire PHQ-9 Over the last 2 weeks, how often have you been bothered by any of the following problems? 1. Little interest or pleasure in doing things: several days 2. Feeling down, depressed, or hopeless: several days 3. Trouble falling or staying asleep, or sleeping too much: nearly every day 4. Feeling tired or having little energy: nearly every day 5. Poor appetite or overeating: several days 6. Feeling bad about yourself - or that you are a failure or have let yourself or your family down: not at all 7. Trouble concentrating on things, such as reading the newspaper or watching television: not at all 8. Moving or speaking so slowly that other people could have noticed. Or the opposite - being so fidgety or restless that you have been moving around a lot more than usual: not at all 9. Thoughts that you would be better off or of hurting yourself in some way: not at all Total score: 9 Depression Screening Interpretation: Positive (denies any si or hi, denies wanting a therapist) Depression Screening Follow-up: Existing condition Depression Screening Done: Yes 09091 - PHQ-9 Billing: Yes Source: Developed by Drs. Demetri Ewing, Brenda Urena, Brendan Whitfield and colleagues, with an educational pk from [employer]. Thrive Questionnaire Date Thrive assessed: 07/11/24 I am a: Patient What is your living situation today?: I have a steady place to live Within the past 12 months, did the food you bought not last and you didn't have the money to get more?: Never true Within the past 12 months, did you worry whether your food would run out before you got money to buy more?: Never true Do you have trouble paying for medicines?: No Do you have trouble getting transportation to medical appointments?: No Do you have trouble paying your heating and electricity bill?: No Do you have trouble taking care of your child, family member or friend?: No Do you have trouble with day-to-day activities such as bathing, preparing meals, shopping, managing finances, etc.?: No Are you currently unemployed and looking for a job?: Yes Are you interested in more education?: No Please select the resources that you would like help with: None Currently or been in a relationship where the following occur: No concerns reported THRIVE Score: 0 AUDIT C Alcohol Use Questionnaire (AUDIT-C) 1. How often do you have a drink containing alcohol?: Never 3. How often do you have six or more drinks on one occasion?: Never Total Score: 0 Score Reviewed/Action Taken: Yes LINDA-7 AMB Questionnaire LINDA-7 Date LINDA - 7 assessed: 07/11/24 Feeling nervous, anxious, or on edge: 1 = Several days Not being able to stop or control worryin = Several days Worrying too much about different things: 1 = Several days Trouble relaxin = Several days Being so restless that it is hard to sit still: 0 = Not at all Becoming easily annoyed or irritable: 0 = Not at all Feeling afraid as if something awful might happen: 0 = Not at all Total LINDA-7 score (0-4 normal; 5-9 mild; 10-14 moderate; 15-21 severe): 4 Source: Developed by Drs. Demetri Ewing, Brenda Urena, Brendan Whitfield and colleagues, with an educational pk from [employer]. LINDA-7 Assessment Billing LINDA-7 Assessment Tool: LINDA-7 Assessment 56041 Physical exam (Primary Care) Vital Signs: Last Vital Signs Pulse 101 H 12/30/24 13:05 Resp 16 12/30/24 13:05 BP 118/84 12/30/24 13:05 Pulse Ox 100 12/30/24 13:05 Oxygen Delivery Method Room Air 12/30/24 13:05 BMI result Body Mass Index 25.4 Tobacco/Smoking Status: Tobacco use Status Tobacco use date assessed 07/11/24 12/30/24 13:14 Patient Tobacco Use Status Never used Tobacco 12/30/24 13:14 e-Cigarette/Vaping Use Never Used 12/30/24 13:14 PHQ-9: PHQ-9 Score PHQ-9: Total score 9 12/30/24 13:14 Depression Screening Interpretation: Positive (denies any si or hi, denies wanting a therapist) Depression Screening Follow-up: Existing condition Thrive Assessment: Date of Thrive Assessment Date Thrive assessed 07/11/24 12/30/24 13:14 Currently or been in a relationship where the following occur: No concerns reported Coding Level of Care Code Est Pt Level 3 (92966) Est Pt Prev Care 40-64y(51842) Diagnoses Palpitations R00.2 Encounter for routine adult physical exam with abnormal findings Z00. Vitamin D insufficiency E55.9 Crohn's disease K50.90 Additional Codes LINDA-7 Assessment Billing - LINDA-7 Assessment Tool: LINDA-7 Assessment 57627 ([id number]) PHQ-9 - 11094 - PHQ-9 Billing: Yes ([id number]) Assessment & Plan Assessment & Plan (1) Palpitations: Code(s): R00.2 - Palpitations Category: Medical (2) Encounter for routine adult physical exam with abnormal findings: Code(s): Z00. - Encounter for general adult medical examination with abnormal findings Category: Medical (3) Vitamin D insufficiency: Code(s): E55.9 - Vitamin D deficiency, unspecified Category: Medical (4) Crohn's disease: Comment: with small and large intestine Code(s): K50.90 - Crohn's disease, unspecified, without complications Category: Medical Plan . Orders: Orders Complete Blood Count Auto Diff Today Z00.01 - Encounter for general adult medical examination with abnormal findings Comprehensive [place]. Panel Fast Today Z00.01 - Encounter for general adult medical examination with abnormal findings TSH reflex Free T4 Today Z00.01 - Encounter for general adult medical examination with abnormal findings Vitamin D 25-OH Total Today E55.9 - Vitamin D deficiency, unspecified ECG 5 day holter monitor Today R00.2 - Palpitations UA CC w/rflx Micro + Cult Today Z00.01 - Encounter for general adult medical examination with abnormal findings Lipid Panel Today Z00.01 - Encounter for general adult medical examination with abnormal findings
--- OUTSIDE RECORDS SUMMARY | 2024-12-30 13:05 | XMS_ITS | Encounter Summary ---
Author Organization [facility] Address [address] [address] Phone Care Team Providers Care Maintenance Dispatcher Name Role Phone Murali Caballero NP Primary Care Provider + Encounter Details Date Type Department Care Team (Late st Contact Info) Description 10/26/2022 Procedure Pass [facility], Ct Scan - [address] [address] Social History Tobacco Use Types Packs/Day Years Used Date Smoking Tobacco: Never Smokeless Tobacco: Never Education Answer Date Recorded Are you interested in more education? Not on paulina e 09/16/2022 Are you concerned about learning? Not on file 09/16/2022 No 09/16/2022 No 09/16/2022 Digital Access Answer Date Recorded No 10/17/2022 No 10/17/2022 Reliable internet access at home? Not on file 10/17/2022 Device with a working camera? Not on file Intimate Partner Violence Answer Date R ecorded Are you denied basic needs s uch as food, clothing, or medical care? No 10/24/2022 In the past 12 months have y ou been in a relationship with a person who hurts, threatens, or tries to control you? No 10/24/2022 Are you denied basic needs s uch as food, clothing, or medical care? No 10/24/2022 In the past 12 months have y ou been in a relationship with a person who hurts, threatens, or tries to control you? No 10/24/2022 Comments No Sex and Gender Information Value Date Recorded Sex Assigned at Female 06/20/2019 12:43 PM EST Legal Sex Female 9:22 PM EDT Gender Identity Female 06/20/2019 12:43 PM EST Sexual Orientation Straight 06/20/2019 12 :43 PM EST documented as of this encounter Plan of Treatment Not on file documented as of this encounter Visit Diagnoses Not on filedocumented in this encounter Care Teams Maintenance Dispatcher Relationship Specialty Start Date End Date Murali Caballero NP [facility] [place] [address] PCP - General Family Medicine 06/20/19 documented as of this encounter Additional Source Comments The information contained in this document represents components of the legal health record. It is not the complete legal health record.[facility]
== END 2024-12-30 14:07 | disposition home or self-care (01) ==
LOC: HO.HMCC 13:00
PROVIDERS: PCP Nurse Practitioner Family; Visit Provider Nurse Practitioner Family
DX: Z00.01 Encounter for general adult medical examination with abnormal findings (principal); R00.2 Palpitations; E55.9 Vitamin D deficiency, unspecified; K50.90 Crohn's disease, unspecified, without complications

== ENCOUNTER → 2024-12-30 12:59 | Outpatient (BNVA) | payer OTHER, SELFPAY | PROVIDERS: PCP Nurse Practitioner Family; Visit Provider Nurse Practitioner Family | DX: Z00.01 Encounter for general adult medical examination with abnormal findings (principal); K50.90 Crohn's disease, unspecified, without complications; R10.9 Unspecified abdominal pain; R19.7 Diarrhea, unspecified; R00.2 Palpitations; E55.9 Vitamin D deficiency, unspecified | CPT/HCPCS: 96127 ==